=== PATIENT | female | born 1955 | race Caucasian/White ===

== ENCOUNTER 2020-06-17 11:04 | Outpatient (CLI) | payer OTHER ==
[2020-06-17] MEDS ORDERED: MULT-717 PO (11:29)
[2020-06-17] MEDS ORDERED: ESTRO PO (11:29)
[2020-06-17] MEDS ORDERED: CIPR500T87 PO (11:29)
[2020-06-17] MEDS ORDERED: Vitamin D3 PO (11:29)
[2020-06-17] MEDS ORDERED: ASCO500T8 PO (11:29)
[2020-06-17 12:27] LABS: INTERNATIONAL NORMALIZED RATIO 0.93 (0.93-1.1); PROTHROMBIN TIME 9.8 Seconds (9.6-11.5)
[2020-06-17 12:28] LABS: ALANINE AMINOTRANSFERASE 16 U/L (12-78); ALBUMIN 3.7 g/dL (3.4-5.0); ANION GAP 6 mmol/L (5-15); BASOPHILS # (AUTO) 0.03 x10^3/uL (0-0.1); BASOPHILS % (AUTO) 1 % (0-1); CALCIUM 9.5 mg/dL (8.5-10.1); CHLORIDE 109 mmol/L (98-107); CREATININE 0.93 mg/dL (0.55-1.02); EOSINOPHILS # (AUTO) 0.21 x10^3/uL (0-0.4); EOSINOPHILS % (AUTO) 5 % (1-7); LYMPHOCYTES # (AUTO) 1.12 x10^3/uL (1-3.4); LYMPHOCYTES % (AUTO) 25 % (22-44); MD NO; MEAN CORPUSCULAR HEMOGLOBIN 30.1 pg (27.0-34.8); MEAN CORPUSCULAR HGB CONC 33.3 g/dL (32.4-35.8); MEAN PLATELET VOLUME 8.4 fL (7.4-10.4); MONOCYTES # (AUTO) 0.44 x10^3/uL (0.2-0.8); MONOCYTES % (AUTO) 10 % (2-9); NEUTROPHILS # (AUTO) 2.76 x10^3/uL (1.8-6.8); NEUTROPHILS % (AUTO) 61 % (42-75); PLATELET COUNT 276 x10^3/uL (130-400); RED BLOOD COUNT 4.69 x10^6/uL (3.82-5.3); RED CELL DISTRIBUTION WIDTH 13.2 % (9.6-15.2)
[2020-06-17 12:30] LABS: ALKALINE PHOSPHATASE 56 U/L (45-117); BILIRUBIN,TOTAL 0.9 mg/dL (0.2-1.0)
== END 2020-06-17 23:59 | disposition home or self-care (01) ==
LOC: STAR 11:04
PROVIDERS: ATTEND Surgery
DX: Z01.818 Encounter for other preprocedural examination (principal); C43.4 Malignant melanoma of scalp and neck; R94.31 Abnormal electrocardiogram [ECG] [EKG]
CPT/HCPCS: 36415; 80053; 85025; 85610; 93005

== ENCOUNTER 2020-06-25 08:46 | Day surgery (SDC) | payer OTHER ==
[~2020-06-25] VITALS: Ht 162.6 cm; Wt 61.0 kg
[~2020-06-25 08:46] MED LIST: ASCO500T8 PO; BUPIVACAINE/PF-EPI 0.5% 1:200K ONE; CIPR500T87 PO; ESTRO PO; MULT-717 PO; Vitamin D3 PO
[2020-06-25] MEDS ORDERED: ACET325T14 PO (09:18)
[2020-06-25] MEDS ORDERED: CHLORHEXIDINE 15 ML UDC MM ONE (09:30)
[2020-06-25] MEDS ORDERED: MIDAZOLAM 1 MG/ML, 2ML ONE (09:56)
[2020-06-25] MEDS ORDERED: FENTANYL PF 250 MCG/5ML ONE (09:58)
[2020-06-25] MEDS ORDERED: LACTATED RINGERS 1,000 ML IV SCH (10:00)
[2020-06-25] MEDS ORDERED: SCOPOLAMINE 1MG PATCH TD ONE ×2 (10:41→11:00)
[2020-06-25] MEDS ORDERED: PROPOFOL 10 MG/ML, 20ML ONE (10:50)
[2020-06-25] MEDS ORDERED: CEFAZOLIN 1,000 MG ONE (10:50)
[2020-06-25] MEDS ORDERED: BUPIVACAINE/PF-EPI 0.5% 1:200K INFIL ONE (11:05)
== END 2020-06-25 13:15 | disposition home or self-care (01) ==
LOC: OUT 08:46
PROVIDERS: ATTEND Surgery
DX: C43.4 Malignant melanoma of scalp and neck (principal); Z11.59 Encounter for screening for other viral diseases; F17.210 Nicotine dependence, cigarettes, uncomplicated; Z88.8 Allergy status to other drugs, medicaments and biological substances; Z98.890 Other specified postprocedural states; Z79.2 Long term (current) use of antibiotics; Z79.899 Other long term (current) drug therapy; Z82.49 Family history of ischemic heart disease and other diseases of the circulatory system; Z80.0 Family history of malignant neoplasm of digestive organs; Z72.89 Other problems related to lifestyle
CPT/HCPCS: 21556; 36415; 87635; 88307; J0690; J2250; J2704; J3010; J7120